=== PATIENT | female | born 1930 | race Two or more races ===

== ENCOUNTER 2017-08-14 09:42 | Emergency (ER) | payer OTHER ==
[~2017-08-14] VITALS: Ht 149.9 cm; Wt 52.2 kg
[~2017-08-14 09:42] MED LIST: AMLODIPINE BESYL5 MG; ATORVASTATIN CA10 MG; ATROVENT 00.5 MG/2.5 IH; AZITHROMYCIN1 G/PKT PO; PROVENTIL0.5 ML/2.5 IH; TUSNEL LIQUID178 ML PO; TUSSI PRES-B L120 M1 PO; ZITHROMAX200 MG PO
[2017-08-14] MEDS ORDERED: ZITHROMAX TRI-500 MG PO (11:55)
[2017-08-14] MEDS ORDERED: TUSSI PRES-B L120 M1 PO (11:55)
== END 2017-08-14 12:11 | disposition home or self-care (01) ==
LOC: ER 09:42
DX: B34.9 Viral infection, unspecified (principal); J11.1 Influenza due to unidentified influenza virus with other respiratory manifestations

== ENCOUNTER 2018-04-17 12:39 | Emergency (ER) | payer OTHER ==
[~2018-04-17] VITALS: Ht 121.9 cm; Wt 48.5 kg
[~2018-04-17 12:39] MED LIST changes: +ZITHROMAX TRI-500 MG PO
== END 2018-04-17 14:54 | disposition home or self-care (01) ==
LOC: ER 12:39
DX: R53.1 Weakness (principal)

== ENCOUNTER 2019-01-26 09:02 | Emergency (ER) | payer OTHER ==
[~2019-01-26] VITALS: Ht 149.9 cm; Wt 47.6 kg
[2019-01-26] MEDS ORDERED: ZOLOFT25 MG PO (09:16)
== END 2019-01-26 13:36 | disposition home or self-care (01) ==
LOC: ER 09:02
DX: R53.83 Other fatigue (principal); R53.81 Other malaise; F41.8 Other specified anxiety disorders; F32.89 Other specified depressive episodes

== ENCOUNTER 2019-05-03 09:53 | Emergency (ER) | payer OTHER ==
[~2019-05-03] VITALS: Ht 149.9 cm; Wt 47.6 kg
[~2019-05-03 09:53] MED LIST changes: +ZOLOFT25 MG PO
[2019-05-03] MEDS ORDERED: AIRBORNE EFFER1 EACH PO (14:47)
[2019-05-03] MEDS ORDERED: MUCINEX DM ER1 EAC1 PO (14:47)
[2019-05-03] MEDS ORDERED: ZITHROMAX TRI-500 MG PO (14:47)
[2019-05-03] MEDS ORDERED: TESSALON PERLE100 M1 PO (14:47)
== END 2019-05-03 14:54 ==
LOC: ER 09:53
DX: J06.9 Acute upper respiratory infection, unspecified (principal)

== ENCOUNTER 2020-02-13 11:32 | Emergency (ER) | payer OTHER ==
[~2020-02-13] VITALS: Ht 147.3 cm; Wt 49.9 kg
[~2020-02-13 11:32] MED LIST changes: +AIRBORNE EFFER1 EACH PO; +MUCINEX DM ER1 EAC1 PO; +TESSALON PERLE100 M1 PO
== END 2020-02-13 14:47 | disposition home or self-care (01) ==
LOC: ER 11:32
DX: R53.1 Weakness (principal)

== ENCOUNTER 2020-02-19 08:18 | Emergency (ER) | payer OTHER ==
[~2020-02-19] VITALS: Ht 144.8 cm; Wt 49.9 kg
== END 2020-02-19 12:42 | disposition home or self-care (01) ==
LOC: ER 08:18
DX: B34.9 Viral infection, unspecified (principal); Z03.818 Encounter for observation for suspected exposure to other biological agents ruled out